=== PATIENT | female | born 1975 | race Caucasian/White ===

== ENCOUNTER 2020-01-30 18:03 | Emergency (ER) | payer MEDICAID ==
[~2020-01-30] VITALS: Ht 157.5 cm; Wt 127.0 kg
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
[2020-01-30] MEDS ORDERED: Methocarbamol 750mg tab ORAL ONE (18:30)
[2020-01-30] MEDS ORDERED: Ketorolac 30mg Inj IM ONE (18:30)
[2020-01-30 18:35] VITALS: BP 133/71
--- NOTE | 2020-01-30 18:59 | NUR ---
ED Nurse Note: pt in radiology
--- NOTE | 2020-01-30 19:03 | NUR ---
HAND-OFF: Report given to HARLAN Candelaria. Pt in stable condition; no acute distress noted. plan of care endorsed.
--- NOTE | 2020-01-30 19:04 | NUR ---
ED Nurse Note: Report received from SHUKRI Narayanan Patient back from CT scan. PAtient in stable condition
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
[2020-01-30] MEDS ORDERED: ROBAXIN-500MG ORAL (19:56)
[2020-01-30] MEDS ORDERED: LIDODERM700 M1 TOPIC (19:56)
[2020-01-30] MEDS ORDERED: IBU800 MG PO (19:56)
[2020-01-30 20:13] VITALS: BP 127/79
--- NOTE | 2020-01-30 20:13 | NUR ---
ER DISCHARGE NOTE: Patient is cleared to be discharged per ERMD, pt is aox4, on room air, with stable vital signs. pt was given dc and prescription instructions, pt was able to verbalize understanding, pt id band removed. pt is able to ambulate with steady gait. pt took all belongings.
--- NOTE | 2020-01-31 16:31 | Diagnostic Imaging Report ---
Clinical Indication:Pain, trauma Technique: 3 views of the left wrist Comparison: None Findings: No acute fractures. No dislocations. The joint spaces are preserved Impression: Negative
== END 2020-01-30 20:15 | disposition home or self-care (01) ==
LOC: EMR 18:18
DX: S16.1XXA Strain of muscle, fascia and tendon at neck level, initial encounter (principal); S39.012A Strain of muscle, fascia and tendon of lower back, initial encounter; G44.209 Tension-type headache, unspecified, not intractable; S20.219A Contusion of unspecified front wall of thorax, initial encounter; S63.502A Unspecified sprain of left wrist, initial encounter; R07.81 Pleurodynia; Z88.6 Allergy status to analgesic agent; V43.52XA Car driver injured in collision with other type car in traffic accident, initial encounter; Y92.411 Interstate highway as the place of occurrence of the external cause; K42.9 Umbilical hernia without obstruction or gangrene
CPT/HCPCS: 70450; 71250; 72125; 72131; 73110; 74176; 96372; J1885; Z7502; 99284

== ENCOUNTER → 2020-02-18 | Emergency (ER) | payer MEDICAID ==
[~2020-02-18] VITALS: Ht 157.5 cm; Wt 136.1 kg
[~2020-02-18] MED LIST: IBU800 MG PO; LIDODERM700 M1 TOPIC; ROBAXIN-500MG ORAL; ZITHROMAX250 MG ORAL
[2020-02-18 08:30] VITALS: BP 123/71
--- NOTE | 2020-02-18 08:50 | Emergency Room Report ---
History of Present Illness General Chief Complaint: Chest Pain Source: Patient Present Illness HPI Disclaimer: Please note that this report is being documented using [employer] technology. This can lead to erroneous entry secondary to incorrect interpretation by the dictating instrument. HPI: 44-year-old female presents for evaluation of chest tightness and lower extremity swelling. Symptoms present several weeks. She reports intermittent tightness in the center of her chest that does not radiate. Seems to come on without obvious trigger. No change in exercise tolerance. Reports swelling of the lower extremities bilaterally though right is somewhat greater than left. Denies long-distance travel, immobilization, hormone use, prior coagulopathy, overlying redness. Non-smoker. History of obesity but has been losing weight recently. History of hypercholesterolemia not currently treated. Currently does not report any chest pain, shortness of breath or leg pain though complains of persistent swelling. Has an appointment to see her PMD on 03/04. PMH: Obesity, hypercholesterolemia PSH: Reviewed Allergies: Tylenol, oxycodone, tramadol Social Hx: Non-smoker Allergies: Coded Allergies: ACETAMINOPHEN (Verified Allergy, Unknown, 01/30/20) OXYCODONE (Verified Allergy, Unknown, 01/30/20) TRAMADOL (Verified Allergy, Unknown, 01/30/20) COVID-19 Screening Contact w/high risk pt: No Experienced COVID-19 symptoms?: No COVID-19 Testing performed [employer] ADMINISTRATOR: No Patient History Now: No Review of Systems All Other Systems: negative except mentioned in HPI Physical Exam Vital Signs Date Time Temp Pulse Resp B/P (MAP) Pulse Ox O2 Delivery O2 Flow Rate FiO2 02/18/20 08:17 98.6 74 21 123/71 (88) 98 Room Air General: Awake and alert, no acute distress HEENT: NC/AT. EOMI. Cardiovascular: RRR. S1 and S2 normal. No murmur appreciated Resp: Normal work of breathing. No cough, wheezing or crackles appreciated Abdomen: Abdomen is soft, nondistended. Nontender. Obese abdomen Skin: Intact. No abrasions, laceration or rash over the exposed skin MSK: Normal tone and bulk. Moving all extremities. No obvious deformity. Symmetrical lower extremity nonpitting edema from the knee to the mid shins bilaterally. Mild tenderness over the lateral aspect of the right calf but no significant tenderness over the deep vein distribution. Neuro: Awake and alert. Mentating appropriately. Medical Decision Making Diagnostic Impression: Primary Impression: Pneumonia Additional Impressions: Chest pain Lower extremity edema ER Course Is a 44-year-old female presenting for evaluation of intermittent chest tightness and lower extremity swelling for the past 3 weeks. Differential includes was not limited to ACS, arrhythmia, CHF, bronchitis, pneumothorax, pneumonia, electrolyte abnormality, renal dysfunction, venous stasis, DVT, venous insufficiency among others. EKG shows normal sinus rhythm without ischemic changes. Chest x-ray does not show obvious infiltrate or other cardiac abnormalities. Patient's heart score is 2. Low risk and stable for outpatient follow-up. PERC negative as the swelling is bilateral. Lower extremity ultrasounds performed which do not show evidence of DVT. Labs returned within normal limits. Troponin within normal limits. X-ray questionable for right lower lobe consolidation. Will start on azithromycin for community-acquired pneumonia/bronchitis. COVID-19 swab negative. She is stable for outpatient follow-up with PMD. Laboratory Tests Test 02/18/20 08:50 White Blood Count 4.9 K/UL (4.8-10.8) Red Blood Count 4.98 M/UL (4.20-5.40) Hemoglobin 14.3 G/DL (12.0-16.0) Hematocrit 43.9 % (37.0-47.0) Mean Corpuscular Volume 88 FL (80-99) Mean Corpuscular Hemoglobin 28.7 PG (27.0-31.0) Mean Corpuscular Hemoglobin Concent 32.7 G/DL (32.0-36.0) Red Cell Distribution Width 11.7 % (11.6-14.8) Platelet Count 177 K/UL (150-450) Mean Platelet Volume 8.3 FL (6.5-10.1) Neutrophils (%) (Auto) 54.8 % (45.0-75.0) Lymphocytes (%) (Auto) 34.8 % (20.0-45.0) Monocytes (%) (Auto) 7.2 % (1.0-10.0) Eosinophils (%) (Auto) 2.0 % (0.0-3.0) Basophils (%) (Auto) 1.2 % (0.0-2.0) Sodium Level 135 MMOL/L (136-145) L Potassium Level 3.5 MMOL/L (3.5-5.1) Chloride Level 104 MMOL/L (98-107) Carbon Dioxide Level 23 MMOL/L (21-32) Anion Gap 8 mmol/L (5-15) Blood Urea Nitrogen 8 mg/dL (7-18) Creatinine 0.8 MG/DL (0.55-1.30) Estimated Glomerular Filtration Rate > 60 mL/min (>60) Glucose Level 98 MG/DL (74-106) Calcium Level 8.6 MG/DL (8.5-10.1) Total Bilirubin 0.5 MG/DL (0.2-1.0) Aspartate Amino Transferase (AST) 20 U/L (15-37) Alanine Aminotransferase (ALT) 23 U/L (12-78) Alkaline Phosphatase 57 U/L (46-116) Troponin I 0.029 ng/mL (0.000-0.056) Pro-B-Type Natriuretic Peptide 187 pg/mL (0-125) H Total Protein 7.2 G/DL (6.4-8.2) Albumin 3.7 G/DL (3.4-5.0) Globulin 3.5 g/dL Albumin/Globulin Ratio 1.1 (1.0-2.7) EKG Diagnostic Results Troponin ordered: Yes When was troponin ordered?: Feb 18, 2020 EKG Time: 08:42 Rate: normal Rhythm: NSR ST Segments: no acute changes Other Impression Sinus rhythm, normal axis, normal intervals, no ST segment changes. Rhythm Strip Diag. Results Rhythm Strip Time: 08:42 EP Interpretation: yes Rate: 69 Rhythm: NSR, no PVC's, no ectopy Chest X-Ray Diagnostic Results Chest X-Ray Diagnostic Results : Chest X-Ray Ordered: Yes # of Views/Limited/Complete: 1 View Indication: Chest Pain Interpretation: no effusion, no pneumothorax, other - Consolidation versus atelectasis right base Impression: Other - Consolidation versus no atelectasis right lung base. Electronically Signed by: Electronically signed by Dr. Keith Mckenna CT/MRI/US Diagnostic Results CT/MRI/US Diagnostic Results : Impression IMPRESSION: No deep venous thrombosis identified in either lower extremity. Radiologist: Asmita Jackson M.D. Electronically Signed: 02/18/20 10:04 Study ready at 10:01 and initial results transmitted at 10:04 Last Vital Signs Date Time Temp Pulse Resp B/P (MAP) Pulse Ox O2 Delivery O2 Flow Rate FiO2 02/18/20 08:17 98.6 74 21 123/71 (88) 98 Room Air Disposition: HOME, SELF-CARE Condition: Stable Scripts Azithromycin* (ZITHROMAX*) 250 Mg Tablet 250 MG ORAL DAILY, #6 TAB 0 Refills Take two tables once daily for 1 day, then one tablet once daily for 4 days. Prov: Keith Mckenna MD 02/18/20 Referrals: NON PHYSICIAN (PCP) Keith Mckenna MD Feb 18, 2020 08:50
[2020-02-18 09:13] LABS: BASOPHILS % (AUTO) 1.2 % (0.0-2.0); HEMATOCRIT 43.9 % (37.0-47.0); HEMOGLOBIN 14.3 G/DL (12.0-16.0); LYMPHOCYTES % (AUTO) 34.8 % (20.0-45.0); MEAN CORPUSCULAR VOLUME 88 FL (80-99); MONOCYTES % (AUTO) 7.2 % (1.0-10.0); NEUTROPHILS % (AUTO) 54.8 % (45.0-75.0); PLATELET COUNT 177 K/UL (150-450); RED BLOOD COUNT 4.98 M/UL (4.20-5.40); RED CELL DISTRIBUTION WIDTH 11.7 % (11.6-14.8); WHITE BLOOD COUNT 4.9 K/UL (4.8-10.8)
--- NOTE | 2020-02-18 09:14 | Diagnostic Imaging Report ---
EXAM: XR Chest, 1 View CLINICAL HISTORY: CP TECHNIQUE: Frontal view of the chest. COMPARISON: No relevant prior studies available. FINDINGS: Lungs: There are increased lung markings in the right lung base medially suspicious for early infiltrate. Progress films recommended for further evaluation. Pleural space: Unremarkable. No pneumothorax. Heart: Unremarkable. No cardiomegaly. Mediastinum: Unremarkable. Bones/joints: Unremarkable. IMPRESSION: There are increased lung markings in the right lung base medially suspicious for early infiltrate. Progress films recommended for further evaluation.
[2020-02-18 09:22] LABS: ANION GAP 8 mmol/L (5-15); BLOOD UREA NITROGEN 8 mg/dL (7-18); CALCIUM 8.6 MG/DL (8.5-10.1); CARBON DIOXIDE 23 MMOL/L (21-32); CHLORIDE 104 MMOL/L (98-107); CREATININE 0.8 MG/DL (0.55-1.30); POTASSIUM 3.5 MMOL/L (3.5-5.1); SODIUM 135 MMOL/L (136-145)
[2020-02-18 09:33] LABS: ALANINE AMINOTRANSFERASE 23 U/L (12-78); ALBUMIN 3.7 G/DL (3.4-5.0); ALBUMIN/GLOBULIN RATIO 1.1 (1.0-2.7); ALKALINE PHOSPHATASE 57 U/L (46-116); ASPARTATE AMINO TRANSFERASE 20 U/L (15-37); BILIRUBIN,TOTAL 0.5 MG/DL (0.2-1.0)
--- NOTE | 2020-02-18 10:05 | Diagnostic Imaging Report ---
EXAM: US Duplex Bilateral Lower Extremities Veins CLINICAL HISTORY: DVT TECHNIQUE: Real-time duplex ultrasound scan of the bilateral lower extremity veins integrating B-mode two-dimensional vascular structure, Doppler spectral analysis, color flow Doppler imaging and compression. COMPARISON: None FINDINGS: Right deep veins: Unremarkable. No DVT in the right common femoral, femoral, proximal deep femoral or popliteal veins. The veins demonstrate normal color flow, are normally compressible, with normal phasic flow and/or augmentation response. Right superficial veins: Unremarkable. No thrombus in the visualized right great saphenous vein. Left deep veins: Unremarkable. No DVT in the left common femoral, femoral, proximal deep femoral or popliteal veins. The veins demonstrate normal color flow, are normally compressible, with normal phasic flow and/or augmentation response. Left superficial veins: Unremarkable. No thrombus in the visualized left great saphenous vein. Soft tissues: No acute findings. No popliteal cyst. IMPRESSION: No deep venous thrombosis identified in either lower extremity.
[2020-02-18 11:04] VITALS: BP 132/78
== END | disposition home or self-care (01) ==
LOC: EMR 08:38
DX: J18.9 Pneumonia, unspecified organism (principal); R60.0 Localized edema; R07.9 Chest pain, unspecified; E78.00 Pure hypercholesterolemia, unspecified; Z88.6 Allergy status to analgesic agent
CPT/HCPCS: 36415; 71045; 80053; 83880; 84484; 85025; 93005; 93970; U0002; Z7502; 99284